=== PATIENT | male | born 1980 | race Caucasian/White ===

== ENCOUNTER 2018-02-22 13:40 | Emergency (ER) | payer OTHER ==
[2018-02-22] MEDS ORDERED: KETOROLAC TROMETHAMINE 60 MG/2 ML VIAL IM ONE (13:51)
--- NOTE | 2018-02-22 14:29 | ED Physician Documentation ---
Lower Extremity Injury - HISTORIAN Historian: patient, spouse - HPI Stated Complaint: Right ankle pain Chief Complaint: Lower Extremity Injury Onset: other (last night) Where: home Context: fall, twist Associated Symptoms:: swelling, unable to bear weight Modifying Factors:: pain on movement (right foot and ankle; fell down 2-3 stairs last night; has been using ice today; pain and edema worse.) - ROS CONST: no problems CVS/RESP: none GI/: denies: problems urinating, nausea, vomiting, other MS/SKIN/LYMPH: none NEURO: denies: headache, head injury, anxiety, depression - PAST HX Past History: none Allergies/Adverse Reactions: Allergies Allergy/AdvReac Type Severity Reaction Status Date / Time No Known Allergies Allergy Verified 02/22/18 13:54 Home Medications: Ambulatory Orders Medication Instructions Recorded Ketorolac Tromethamine [Toradol] 10 mg PO TID #15 tablet 02/22/18 - SOCIAL HX Smoking History: non-smoker - FAMILY HX Family History: denies: none - VITAL SIGNS Vital Signs: Vital Signs Temp Pulse Resp BP Pulse Ox 98.6 F 71 18 128/74 98 02/22/18 14:56 02/22/18 14:56 02/22/18 14:56 02/22/18 14:56 02/22/18 14:56 - REVIEWED ASSESSMENTS Nursing Assessment Reviewed: Yes Vitals Reviewed: Yes Progress - Progress Progress: Medicated for pain and edema with toradol IM Reviewed xray results with patient. Donny applied and post op shoe provided due to excessive edema. Reviewed discharge instructions with patient; verbalized understanding. ED Results Lab/Radiology - Radiology Radiology Impressions: Right ankle, 3 views History: Injury, fall, pain Findings: The osseous, joint and soft tissue structures are normal. Impression: Normal. Electronically signed on Feb 22, 2018 2:21:57 PM CDT by: Edinson Aguilera Right foot, 3 views History: Injury, pain, fall Findings: The osseous, joint and soft tissue structures are normal. Impression: Normal. Electronically signed on Feb 22, 2018 2:14:25 PM CDT by: Edinson Aguilera - Orders Orders: ED Orders Category Date Time Status Donny Wrap Affected Extremity 1T Care 02/22/18 14:25 Active Post Op Shoe 1T Care 02/22/18 14:25 Active ANKLE 3 VIEWS OR MORE [RAD] Stat Exams 02/22/18 Taken FOOT 3 VIEWS OR MORE [RAD] Stat Exams 02/22/18 Taken Ketorolac Tromethamine [Toradol] Med 02/22/18 13:51 Discontinued 60 mg IM NOW ONE Lower Extremities Injury Phy - Physical Exam General Appearance: moderate distress Hips: bilateral hip: non-tender, normal inspection, normal range of motion, no evidence of injury Legs: bilateral: non-tender, normal inspection, normal range of motion, no evidence of injury Knees: bilateral: non-tender, normal inspection, normal range of motion, no evidence of injury Ankle: right: bone tenderness, limited range of motion, pain, soft tissue tenderness, swelling, left: non-tender, normal inspection, normal range of motion, no evidence of injury Foot: right foot: limited range of motion, pain, soft tissue tenderness, swelling, left foot: non-tender, normal inspection, normal range of motion, no evidence of injury Gait: unable to bear weight (right foot) Neuro/Vascular/Tendon: no vascular compromise, motor nml, sensation nml, ROM nml Resp/CVS: no resp. distress, reg. rate & rhythm Discharge Clincal Impression: Right foot sprain Qualifiers: Encounter type: initial encounter Qualified Code(s): S93.601A - Unspecified sprain of right foot, initial encounter Right ankle sprain Qualifiers: Encounter type: initial encounter Involved ligament of ankle: unspecified ligament Qualified Code(s): S93.401A - Sprain of unspecified ligament of right ankle, initial encounter Fall in home Qualifiers: Encounter type: initial encounter Qualified Code(s): W19.XXXA - Unspecified fall, initial encounter; Y92.009 - Unspecified place in unspecified non- institutional (private) residence as the place of occurrence of the external cause; Y92.009 - Unspecified place in unspecified non-institutional (private) residence as the place of occurrence of the external cause Prescriptions: Ketorolac Tromethamine [Toradol] 10 mg PO TID #15 tablet Referrals: Sandra Baker FNP [Primary Care Provider] - 2 Days Additional Instructions: Ice Rest Elevation If you are unable to bear weight and continuing to have significant pain on day 3-4; see your PCP for re-evaluation and additional xrays. You may use Tylenol every 4hour as needed for pain. Limit your dose to less than 4 G per day. Do not take ibuprofen, aleve, naproxen or any other NSAID while you are on toradol. Ankle Exercise: 4-5 times a day Write the alphabet A-Z and Numbers 1-20 with the big toe of affected foot. This increased mobility and aids in a quicker recovery Condition: Stable Disposition: 01 HOME, SELF-CARE Decision to Admit: NO Decision Time: 14:28
[2018-02-22 15:02] VITALS: BP 128/74
--- NOTE | 2018-02-22 20:07 | Diagnostic Imaging Report ---
MOY SIMEON (SMOKING PIPE MAKER) - ER [facility] [address] [facility].[address] [address] Report Submission Date: Feb 22, 2018 2:21:57 PM CDT Patient Study Name: CRISTY SUMNER Date: Feb 22, 2018 1:51:26 PM CDT Modality Type: DX Gender: M Description: LOWER EXTREMITY : 76 Institution: [facility] Physician: MOY SIMEON (SMOKING PIPE MAKER) - ER Right ankle, 3 views History: Injury, fall, pain Findings: The osseous, joint and soft tissue structures are normal. Impression: Normal. Electronically signed on Feb 22, 2018 2:21:57 PM CDT by: Edinson SIERRA
--- NOTE | 2018-02-22 20:08 | Diagnostic Imaging Report ---
MOY SIMEON (AUTOMOTIVE MECHANICAL ENGINEER) - ER [facility] [address] [facility].[address] [address] Report Submission Date: Feb 22, 2018 2:14:25 PM CDT Patient Study Name: CRISTY SUMNER Date: Feb 22, 2018 1:55:58 PM CDT Modality Type: DX Gender: M Description: LOWER EXTREMITY : 76 Institution: [facility] Physician: MYO SIMEON (AUTOMOTIVE MECHANICAL ENGINEER) - ER Right foot, 3 views History: Injury, pain, fall Findings: The osseous, joint and soft tissue structures are normal. Impression: Normal. Electronically signed on Feb 22, 2018 2:14:25 PM CDT by: Edinson SIERRA
== END 2018-02-22 14:56 | disposition home or self-care (01) ==
LOC: ED 13:40
DX: S93.601A Unspecified sprain of right foot, initial encounter (principal); S93.401A Sprain of unspecified ligament of right ankle, initial encounter; W19.XXXA Unspecified fall, initial encounter; Y92.009 Unspecified place in unspecified non-institutional (private) residence as the place of occurrence of the external cause; Y93.9 Activity, unspecified; Y99.9 Unspecified external cause status
CPT/HCPCS: 73610; 73630; J1885; 96372